=== PATIENT | male | born 1975 | race Caucasian/White ===

== ENCOUNTER 2022-05-14 09:14 | Outpatient (CLI) | payer OTHER, SELFPAY ==
--- NOTE | 2022-05-14 11:00 | NEURO_ITS ---
Impression: # History of left upper extremity numbness and pain. # Evidence of right ulnar neuropathy. # Normal needle/EMG exam. # Clinical correlation recommended. Motor Nerve Conduction Upper Extremities Median Nerve Conduction Velocity (m/sec) Terminal Latency (msec) Response Voltage(mV) Elbow-Wrist Wrist Elbow Wrist Right 52 3.7 7 8 Left 52 3.6 6 7 Ulnar Nerve Conduction Velocity (m/sec) Terminal Latency (msec) Response Voltage(mV) Above Elbow Below Elbow Wrist Above Elbow Below Elbow Wrist Right 49 46 2.9 4 4 5 Left 52 52 2.8 4 4 5 F-Wave Latency Median (ms) Ulnar (ms) Right 32.3 31.9 Left 32.2 32.0 Sensory Nerve Conduction Upper Extremities Median Nerve Stimulation Terminal Latency (msec) Wrist/Digit Response Voltage (uV) Wrist Right 3.9/4.0 14/21 Left 3.7/3.9 34/34 Ulnar Nerve Stimulation Terminal Latency (msec) Wrist/Digit Response Voltage (uV) Wrist Right 3.8 12 Left 3.3 34 Radial Nerve Terminal Latency (msec) Response Voltage(mV) Right 2.5 11 Left 1.9 17 Left Right Muscles Examined Fibrillation Fasciculation Scarcity Voltage Duration Left Right Left Right Left Right Left Right Left Right Deltoid Biceps X X Brachioradialis Triceps X X Pronator Teres X X Ext Indicis X X Ext Digitorum X X Abd Poll Brev X X 1st Dorsal Interosseus Paraspinals MTDD
== END 2022-05-14 09:15 | disposition home or self-care (01) ==
PROVIDERS: PCP Family Medicine; Visit Provider Nurse Practitioner Family
DX: R20.2 Paresthesia of skin (principal); G56.21 Lesion of ulnar nerve, right upper limb
CPT/HCPCS: 95886; 95911

== ENCOUNTER 2023-02-13 11:56 | Observation (INO) | payer OTHER, SELFPAY ==
[2023-02-13] VITALS (36 sets, daily range): BP systolic 133–192; BP diastolic 67–107; PULSE 69–110; RESP 11–21; TEMP 36.4–37; O2SAT 94–99; BMI 37.0
--- NOTE | ~2023-02-13 | NM_ITS ---
EXAMINATION: NM stress w perf spect multi DATE: 02/14/2023 11:32 INDICATION: Chest pain TECHNIQUE: Rest images were obtained following intravenous administration of 11 mCi Tc99m tetrofosmin (Myoview). The patient performed an exercise activity. At peak exercise, 31.778 mCi Tc99m tetrofosmi n (Myoview) was administered intravenously, and stress images were obtained. Data was reconstructed i nto short axis and horizontal and vertical long axis SPECT images. Gated SPECT images were also obtai niranjan. COMPARISON: None. FINDINGS: There is normal left ventricular perfusion without definite evidence of reversible or fixed perfusion abnormality to suggest ischemia or infarction. There is normal left ventricular chamber size, wall motion and ejection fraction. Left ventricular ejection fraction measures >70%. IMPRESSION: 1. Normal myocardial perfusion at rest and during stress. 2. Left ventricular ejection fraction measuring >70%. Reviewed, dictated and finalized at location A.
--- NOTE | ~2023-02-13 | XR_ITS ---
EXAMINATION: XR chest 2V DATE: 02/13/2023 12:26 INDICATION: Left-sided chest pain/pressure TECHNIQUE: PA and lateral views of the chest were obtained. COMPARISON: Chest radiograph dated 11/28/2016 FINDINGS: The lungs remain clear with no focal airspace opacities, pulmonary edema, pleural effusion or pneumot horax. The cardiomediastinal silhouette is normal. Mild thoracic spondylosis. IMPRESSION: 1. No acute cardiopulmonary disease. Reviewed, dictated and finalized at location A.
--- NOTE | 2023-02-13 11:57 | ECG_ITS ---
Measurements Intervals [place] Rate: 89 P: 32 AL: 160 QRS: 30 QRSD: 97 T: 35 QT: 339 QTc: 414 Interpretive Statements SINUS RHYTHM NO PREVIOUS ECG AVAILABLE FOR COMPARISON Electronically Signed On 02-13-2023 12:48:26 CDT by Garett Sandoval M.D.
[2023-02-13 12:17] LABS: Basophils Absolute Auto 0.1 K/mm3 (0.0-0.1); Basophils Percent Auto 0.7 % (0.2-1.2); Eosinophils Absolute Auto 0.3 K/mm3 (0-0.3); Eosinophils Percent Auto 3.6 % (0-4.4); Hematocrit 42.1 % (42.0-52.0); Hemoglobin 14.2 g/dL (14.0-18.0); Immature Granulocyte Absolute 0.01 K/mm3 (0.00-0.031); Immature Granulocyte Percent A 0.1 % (0-0.5); Lymphocytes Absolute Auto 2.96 K/mm3 (0.9-3.2); Lymphocytes Percent Auto 31.2 % (18.3-44.2); Mean Corpuscular HGB Conc 33.7 g/dl (32-36); Mean Corpuscular Volume 86.1 fl (80-100); Mean Platelet Volume 10.4 fl (7.4-10.4); Monocytes Absolute Auto 0.7 K/mm3 (0.1-0.6); Monocytes Percent Auto 7.1 % (2.6-8.5); Neutrophils Absolute Auto 5.4 K/mm3 (1.3-6.7); Neutrophils Percent Auto 57.3 % (45.5-73.1); Platelet Count Result 240 k/mm3 (150-375); Red Blood Count 4.89 M/mm3 (4.6-6.20); Red Cell Distribution Width 11.9 % (11.5-14.5); White Blood Count 9.5 K/mm3 (4.5-10.0)
[2023-02-13 12:24] LABS: Alanine Aminotransferase 48 U/L (6-50); Albumin Level 4.6 g/dL (3.5-5.1); Alkaline Phosphatase 78 U/L (38-126); Anion Gap 10 mmol/L (8-16); Aspartate Amino Transferase 39 U/L (17-59); Blood Urea Nitrogen 14 mg/dL (9-20); Calcium 9.4 mg/dL (8.4-10.2); Carbon Dioxide 29 mmol/L (22-30); Chloride 98 mmol/L (98-107); Estimated CRCL calculation 180 ml/min; Estimated Glomerular Filt Rate > 60; Glucose 188 mg/dL (65-110); Lipase 57 U/L (23-300); Potassium 3.6 mmol/L (3.4-5.0); Prothrombin Time 13.8 Seconds (11.1-14.7); Sodium 137 mmol/L (137-145)
[2023-02-13 12:36] LABS: Troponin I < 0.012 ng/mL (0.000-0.034)
[2023-02-13] MEDS: NITROGLYCERIN SL 0.4 MG TABLET SUBLINGUAL (14:57)
[2023-02-13] MEDS: ASPIRIN 81 MG CHEWABLE TABLET 324 MG PO (14:57)
[2023-02-13 15:33] LABS: Troponin I < 0.012 ng/mL (0.000-0.034)
--- NOTE | 2023-02-13 15:49 | ED.CHESTPAIN ---
HPI - Chest Pain General Chief Complaint: Chest Pain Stated Complaint: chest pain after sneezing Time Seen by Provider: 02/13/23 14:01 History of Present Illness HPI narrative: This is a 47-year-old male, with past history of hypertension, who presents emergency department complaining of chest pain beginning today. The patient states he was at his usual state of health, showering when he noticed pressure-like chest pain, rated 7/10 with radiation to the left arm. He states his pain worsened with physical exertion and improved with rest. It was associated with nausea and a cold sweat. He has no other complaints at this time. Related Data Allergies Allergy/AdvReac Type Severity Reaction Status Date / Time No Known Allergies Allergy Unknown Unverified 11/28/16 22:43 Review of Systems Review of Systems: CONSTITUTIONAL: Denies fever, chills, or sweats. EYES: Denies visual changes, redness, or discharge. ENT: Denies rhinorrhea, congestion, sore throat, or otalgia. CARDIOVASCULAR: Chest pain radiating to left arm denies palpitations, or edema. RESPIRATORY: Denies cough or dyspnea. GASTROINTESTINAL: Denies abdominal pain, nausea, vomiting, or diarrhea. GENITOURINARY: Denies dysuria or hematuria. SKIN: Denies rash or itching. MUSCULOSKELETAL: Denies back pain, joint pain, or myalgia. NEUROLOGIC: Denies headache, numbness, dizziness, or weakness. PSYCHIATRIC: Denies anxiety or depression. [facility] Past Medical History Medical History History of repair of both ankle joints Hypertension Family History Family History Mother Acute myocardial infarction Grandparent Acute myocardial infarction Other Acute myocardial infarction Maternal aunt Social History Social History Smoking status: Never smoker Alcohol intake: current Drinks per week: 2 Substance use: never Exam Narrative: GENERAL: Well-developed, well-nourished, and in no acute distress. HEAD: Normocephalic, atraumatic. EYES: PERRLA and EOMI. CHEST: Clear to auscultation. No respiratory distress. No wheezes rales or rhonchi HEART: Regular rate and rhythm. No murmur heard. Normal peripheral pulses. ABDOMEN: Soft, nontender, nondistended, normal active bowel sounds. EXTREMITIES: Normal range of motion. No edema. SKIN: Warm, dry, no rash. NEURO: Alert and oriented x3. Moving all 4 limbs purposefully. PSYCH: Normal mood and affect. Course Course Emergency Course: 15:50 - EKG not concerning for ischemia. Initial troponin negative. Heart score 4. Chest x-ray unremarkable. CBC unremarkable. Chemistries demonstrate slightly elevated blood glucose of 188. The patient's chest pain improved with sublingual nitroglycerin. I discussed the patient with hospitalist who admit for chest pain rule out. I discussed the findings and recommendations with the patient and his mother, both of whom voiced understanding and are comfortable with the plan. Vital Signs Vital signs: Vital Signs Temperature 98.6 F 02/13/23 12:08 Pulse Rate 92 02/13/23 12:08 Respiratory Rate 18 02/13/23 12:08 Blood Pressure 192/107 H 02/13/23 12:08 Pulse Oximetry 98 02/13/23 12:08 Oxygen Delivery Room Air 02/13/23 12:08 Temperature 97.6 F 02/13/23 19:55 Pulse Rate 74 02/13/23 19:55 Respiratory Rate 16 02/13/23 19:55 Blood Pressure 143/79 H 02/13/23 19:55 Pulse Oximetry 97 02/13/23 19:55 Oxygen Delivery Room Air 02/13/23 13:05 MDM - Chest Pain MDM Narrative Medical decision making narrative: Plan: Labs, imaging, pain control, EKG, troponin, reassess Differential Diagnosis Differential diagnosis: Likely pneumothorax, costochondritis and other (ACS, pneumonia, metabolic abnormality, other) Lab Data 02/13/23 12:08 02/13/23 12:08 Labs:
[2023-02-13 19:54] LABS: Troponin I < 0.012 ng/mL (0.000-0.034)
--- NOTE | 2023-02-13 20:15 | ADMGEN ---
This patient, Quirino Ramirez, was admitted to IMU Room 214-01. Patient/family oriented to hospital policies and general routines including ID bracelet, bed and alarms, visiting hours, pain management, procedures, bathroom and other care routines, personal items, smoking policy, room service/diet, and visiting hours. Information on how to activate the Rapid Response Team has been discussed. Patient/Family are encouraged to report perceived risks to care and to ask questions if they do not understand what they are told or what they should do.
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
[2023-02-14] VITALS (12 sets, daily range): BP systolic 142–153; BP diastolic 85–91; PULSE 63–96; RESP 16–20; TEMP 36.4–36.9; O2SAT 94–99
--- NOTE | 2023-02-14 | EST_ITS ---
Patient Info Name: Quirino Ramirez Age: 47 years : 1975 Gender: Male Ht: 72 in Wt: 272 lbs BSA: 2.55 m2 HR: 76 bpm BP: 128 / 77 mmHg Heart Rhythm: Sinus Rhythm Exam Date: 02/14/2023 10:35 AM Exam Location: [facility] Stress Patient Status: Inpatient Admit Date: 02/13/2023 Staff Ordering Physician: Jacqueline Hubbard DO Attending Provider: Wing Baptiste MD Exercise Technologist: Mireille Allred CT Exercise Physician: Clark Milner DO Exam Type: CA stress test treadmill w NM Study Info Indications R07.89 - Other chest pain A nuclear stress test was performed. Summary 1. 1. Negative Jorge exercise stress test for ischemic ST changes by ECG criteria. 2. 2. Reduced functional capacity, achieving 7 METs of workload. 3. 3. Baseline hypertension. 4. 4. Appropriate HR response to exercise. 5. 5. Appropriate HR recovery at 1 minute post exercise. 6. 6. Nuclear scan to follow and will be reported separately. Please correlate with it. 7. 7. Patient informed of the above results. Protocol: Jorge Stress ECG Details Stage: REST Duration (min): 3 min : 13 sec Speed (mph): 0.0 Grade (%): 0 HR (bpm): 87 SBP (mmHg): 154 DBP (mmHg): 93 METS: --- Stage: REST Duration (min): 7 min : 30 sec Speed (mph): 0.0 Grade (%): 0 HR (bpm): --- SBP (mmHg): 154 DBP (mmHg): 93 METS: --- Stage: STAGE 1 Duration (min): 1 min : 0 sec Speed (mph): 1.7 Grade (%): 10 HR (bpm): --- SBP (mmHg): 154 DBP (mmHg): 93 METS: --- Stage: STAGE 1 Duration (min): 2 min : 0 sec Speed (mph): 1.7 Grade (%): 10 HR (bpm): 134 SBP (mmHg): 154 DBP (mmHg): 93 METS: --- Stage: STAGE 1 Duration (min): 3 min : 0 sec Speed (mph): 1.7 Grade (%): 10 HR (bpm): 142 SBP (mmHg): 209 DBP (mmHg): 61 METS: --- Stage: STAGE 2 Duration (min): 1 min : 0 sec Speed (mph): 2.5 Grade (%): 12 HR (bpm): 150 SBP (mmHg): 209 DBP (mmHg): 61 METS: --- Stage: STAGE 2 Duration (min): 1 min : 45 sec Speed (mph): 2.5 Grade (%): 12 HR (bpm): 154 SBP (mmHg): 209 DBP (mmHg): 61 METS: --- Stage: RECOVERY Duration (min): 0 min : 14 sec Speed (mph): 1.5 Grade (%): 0 HR (bpm): 154 SBP (mmHg): 208 DBP (mmHg): 63 METS: --- Stage: RECOVERY Duration (min): 1 min : 14 sec Speed (mph): 0.0 Grade (%): 0 HR (bpm): 129 SBP (mmHg): 208 DBP (mmHg): 63 METS: --- Stage: RECOVERY Duration (min): 2 min : 14 sec Speed (mph): 0.0 Grade (%): 0 HR (bpm): 119 SBP (mmHg): 208 DBP (mmHg): 63 METS: --- Stage: RECOVERY Duration (min): 2 min : 55 sec Speed (mph): 0.0 Grade (%): 0 HR (bpm): 122 SBP (mmHg): 148 DBP (mmHg): 70 METS: --- Peak HR: 154 bpm Rest Sys BP: 154 mmHg Peak Sys BP: 209 mmHg Max Pred HR: 173 bpm % Max Pred HR: 89 % Target HR: 147 bpm Max RPP: 32,186 bpm*mmHg Disla Score: -45 Termination Reason: Reached target heart rate or workload Cardiac Symptoms: Shortness of breath Max ST Seg
[2023-02-14 05:01] LABS: Basophils Absolute Auto 0.1 K/mm3 (0.0-0.1); Basophils Percent Auto 0.7 % (0.2-1.2); Eosinophils Absolute Auto 0.4 K/mm3 (0-0.3); Eosinophils Percent Auto 4.5 % (0-4.4); Hematocrit 39.5 % (42.0-52.0); Hemoglobin 13.5 g/dL (14.0-18.0); Immature Granulocyte Absolute 0.01 K/mm3 (0.00-0.031); Immature Granulocyte Percent A 0.1 % (0-0.5); Lymphocytes Absolute Auto 3.19 K/mm3 (0.9-3.2); Lymphocytes Percent Auto 34.7 % (18.3-44.2); Mean Corpuscular HGB Conc 34.2 g/dl (32-36); Mean Corpuscular Hemoglobin 29.6 pg (26-34); Mean Corpuscular Volume 86.6 fl (80-100); Mean Platelet Volume 10.6 fl (7.4-10.4); Monocytes Absolute Auto 0.8 K/mm3 (0.1-0.6); Monocytes Percent Auto 9.1 % (2.6-8.5); Neutrophils Absolute Auto 4.7 K/mm3 (1.3-6.7); Neutrophils Percent Auto 50.9 % (45.5-73.1); Platelet Count Result 222 k/mm3 (150-375); Red Blood Count 4.56 M/mm3 (4.6-6.20); White Blood Count 9.2 K/mm3 (4.5-10.0)
[2023-02-14 05:14] LABS: Anion Gap 5 mmol/L (8-16); Blood Urea Nitrogen 13 mg/dL (9-20); Carbon Dioxide 31 mmol/L (22-30); Chloride 102 mmol/L (98-107); Cholesterol 165 mg/dL (0-200); Estimated CRCL calculation 176 ml/min; Estimated Glomerular Filt Rate > 60; Glucose 158 mg/dL (65-110); HDL Direct 34 mg/dL; Potassium 3.7 mmol/L (3.4-5.0); Sodium 138 mmol/L (137-145); Triglycerides 121 mg/dL (<150)
[2023-02-14 05:25] LABS: LDL Cholesterol Direct 112 mg/dL
[2023-02-14 05:40] LABS: Hemoglobin A1C 8.1 % (<5.7)
--- NOTE | 2023-02-14 06:28 | PCRCNOTE ---
pt was unable to tolerate hospital cpap/bipap unit
[2023-02-14 08:09] LABS: Glucose Point of Care 180 mg/dl (65-105)
[2023-02-14 11:52] LABS: Glucose Point of Care 181 mg/dl (65-105)
[2023-02-14] MEDS: ASPIRIN 81 MG CHEWABLE TABLET PO (12:01)
[2023-02-14] MEDS: metFORMIN HCL XR 500 MG TAB.SR.24H PO (12:02)
[2023-02-14] MEDS: amLODIPine BESYLATE 5 MG TABLET PO (12:03)
[2023-02-14] MEDS: ENOXAPARIN 40 MG/0.4 ML SYRINGE SUB-Q (12:03)
[2023-02-14] MEDS: PANTOPRAZOLE 40 MG TABLET PO (12:03)
[2023-02-14] MEDS: hydroCHLOROthiazide 25 MG TABLET PO (12:03)
[2023-02-14] MEDS: VALSARTAN 160 MG TABLET PO (12:04)
--- NOTE | 2023-02-14 13:41 | PM.DS ---
DS: Admitting Diagnosis Discharge Date 02/14/2023 Admitting Diagnosis Chest pain DS: Discharge Diagnosis Discharge Diagnosis (1) Chest pain: Qualifiers: Chest pain type: unspecified Qualified Code(s): R07.9 - Chest pain, unspecified Code(s): R07.9 - Chest pain, unspecified Status: Acute (2) Essential hypertension: Code(s): I10 - Essential (primary) hypertension Status: Acute (3) Type 2 diabetes mellitus with hyperglycemia, without long-term current use of insulin: Code(s): E11.65 - Type 2 diabetes mellitus with hyperglycemia Status: Acute (4) Obstructive sleep apnea on CPAP: Onset Date: ~2017 Code(s): G47.33 - Obstructive sleep apnea (adult) (pediatric) Status: Acute (5) Dyslipidemia: Code(s): E78.5 - Hyperlipidemia, unspecified Status: Acute (6) GERD (gastroesophageal reflux disease): Qualifiers: Esophagitis presence: esophagitis presence not specified Qualified Code(s): K21.9 - Gastro-esophageal reflux disease without esophagitis Code(s): K21.9 - Gastro-esophageal reflux disease without esophagitis Status: Acute DS: Summary Hospital Course Hospital Course: 47-year-old male with past medical history of obesity hypertension hyperlipidemia GERD and family history of premature coronary artery disease presented with chest pain. Patient has been having intermittent left-sided chest pain in various areas of the chest sharp in quality for the past month. Usually short lived. He reports that he sneezed and started having this pain. With his family history he came to the ER for evaluation. He received full dose of aspirin. He also got a nitro and subsequently chest pain resolved. He reports that he is sore in his chest since then which persist. He was admitted and better with serial troponins remain negative. Stress test was performed which came back negative. A chest pain most likely musculoskeletal in origin. He will continue to follow-up with PCP for further workup if needed. As an outpatient basis Time Spent with Patient Time attestation: Total time spent providing and/or coordinating discharge services: 35 minutes DS: Data Data Completed and Pending Labs on day of discharge: Labs from last 24 hours 02/14/23 02/14/23 02/14/23 11:48 07:45 04:09 WBC 9.2 RBC 4.56 L Hgb 13.5 L Hct 39.5 L MCV 86.6 MCH 29.6 MCHC 34.2 RDW 12.0 Plt Count 222 MPV 10.6 H Immature Gran % (Auto) 0.1 Neut % (Auto) 50.9 Lymph % (Auto) 34.7 [place] % (Auto) 9.1 H Eos % (Auto) 4.5 H Baso % (Auto) 0.7 Lymph # (Auto) 3.19 [place] # (Auto) 0.8 H Eos # (Auto) 0.4 H Baso # (Auto) 0.1 Abs Immat Gran (auto) 0.01 Absolute Neuts (auto) 4.7 Absolute Nucleated RBC 0.0 Nucleated RBC % 0.0 Sodium 138 Potassium 3.7 Chloride 102 Carbon Dioxide 31 H Anion Gap 5 L BUN 13 Creatinine 0.60 L Estim Creat Clear Calc 176 Estimated GFR > 60 Glucose 158 H POC Capillary Glucose 181 H 180 H Hemoglobin A1c 8.1 H Calcium 9.0 Troponin I Triglycerides 121 Cholesterol 165 LDL Cholesterol Direct 112 HDL Direct 34 02/13/23 02/13/23 19:26 15:02 WBC RBC Hgb Hct MCV MCH MCHC RDW Plt Count MPV Immature Gran % (Auto) Neut % (Auto) Lymph % (Auto) [place] % (Auto) Eos % (Auto) Baso % (Auto) Lymph # (Auto) [place] # (Auto) Eos # (Auto) Baso # (Auto) Abs Immat Gran (auto) Absolute Neuts (auto) Absolute Nucleated RBC Nucleated RBC % Sodium Potassium Chloride Carbon Dioxide Anion Gap BUN Creatinine Estim Creat Clear Calc Estimated GFR Glucose POC Capillary Glucose Hemoglobin A1c Calcium Troponin I < 0.012 < 0.012 Triglycerides Cholesterol LDL Cholesterol Direct HDL Direct Imaging Radiologist's impression: ITS Impres
== END 2023-02-14 15:16 | disposition home or self-care (01) ==
LOC: ANHED 15:54 → ANHIMU 16:53
PROVIDERS: Admitting Provider Internal Medicine; Emergency Provider Preventive Medicine Aerospace Medicine; PCP Family Medicine; Visit Provider Internal Medicine
DX: R07.9 Chest pain, unspecified (principal); I10 Essential (primary) hypertension; E78.5 Hyperlipidemia, unspecified; K21.9 Gastro-esophageal reflux disease without esophagitis; E66.9 Obesity, unspecified; E11.65 Type 2 diabetes mellitus with hyperglycemia; G47.33 Obstructive sleep apnea (adult) (pediatric); Z99.89 Dependence on other enabling machines and devices; Z68.36 Body mass index [BMI] 36.0-36.9, adult; Z87.891 Personal history of nicotine dependence; Z79.82 Long term (current) use of aspirin; Z79.84 Long term (current) use of oral hypoglycemic drugs; Z79.899 Other long term (current) drug therapy; Z82.49 Family history of ischemic heart disease and other diseases of the circulatory system
CPT/HCPCS: 36415; 71046; 78452; 80048; 80053; 80061; 82948; 83036; 83690; 84484; 85025; 85610; 85730; 93005; 93017; 96372; 99285; A9270; A9502; G0378; J1650